=== PATIENT | male | born 1975 ===

== ENCOUNTER 2017-11-18 13:22 | Observation (INO) | payer OTHER, SELFPAY ==
[2017-11-18 13:22] VITALS: BMI 25.1
[2017-11-18] MEDS ORDERED: Sodium Chloride 0.9% 1,000 ML IV STA (14:07)
--- NOTE | 2017-11-18 14:11 | ED PDOC ---
Arrival/HPI - General Chief Complaint: ENT Problem Time Seen by Provider: 11/18/17 14:05 Historian: Patient - History of Present Illness Narrative History of Present Illness (Text): 11/18/17 14:08 42 y/o male, pmh including peritonsillar abscess, nkda, c/o throat pain x 2 days. Aching pain, aggravated by swallowing, associated with fever started today, no antipyretic taking at home, no night sweat, no chest pain or shortness of breath, no palpitation, no night sweat, no other medical or psychological complaints. Past Medical History - Provider Review Nursing Documentation Reviewed: Yes - Infectious Disease Hx of Infectious Diseases: None - Tetanus Immunization Tetanus Immunization: Unknown - Past Medical History Past Medical History: No Previous - Psychiatric Hx Depression: No Hx Emotional Abuse: No Hx Physical Abuse: No Hx Substance Use: No - Past Surgical History Past Surgical History: No Previous - Anesthesia Hx Anesthesia: No - Suicidal Assessment Feels Threatened In Home Enviroment: No Family/Social History - Physician Review Nursing Documentation Reviewed: Yes Family/Social History: Unknown Family HX Smoking Status: Unknown If Ever Smoked Hx Alcohol Use: No Hx Substance Use: No Hx Substance Use Treatment: No Allergies/Home Meds Allergies/Adverse Reactions: Allergies seafood Allergy (Uncoded 11/18/17 13:50) RASH Review of Systems - Review of Systems Constitutional: Fevers. absent: Fatigue Eyes: absent: Vision Changes ENT: Sore Throat. absent: Hearing Changes Respiratory: absent: SOB, Cough Gastrointestinal: absent: Abdominal Pain, Nausea, Vomiting Musculoskeletal: absent: Arthralgias, Back Pain Skin: absent: Rash, Pruritis Psychiatric: absent: Anxiety, Depression Physical Exam Vital Signs Reviewed: Yes Vital Signs Temp Pulse Resp BP Pulse Ox 11/18/17 21:03 66 16 126/49 L 98 11/18/17 19:34 97.9 F 64 18 110/62 97 11/18/17 13:46 100.3 F H 90 20 121/80 98 Temperature: Febrile Blood Pressure: Normal Pulse: Regular Respiratory Rate: Normal Appearance: Positive for: Well-Appearing, Non-Toxic Pain Distress: Severe Mental Status: Positive for: Alert and Oriented X 3 - Systems Exam Head: Present: Atraumatic, Normocephalic Pupils: Present: PERRL Extroacular Muscles: Present: EOMI Conjunctiva: Present: Normal Ears: Present: NORMAL TM, Normal Canal. No: Erythema Mouth: Present: Moist Mucous Membranes Pharnyx: Present: ERYTHEMA, EXUDATE, TONSILS ENLARGED, Peritonsilar Swelling, Muffled/Hoarse Voice. No: Uvular Deviation, Strider, Soft Palate/Uvular Edema Nose (External): Present: Atraumatic. No: Abrasion, Contusion, Laceration Nose (Internal): Present: Normal Inspection, No Active Bleeding. No: Rhinorrhea , Septal Hematoma, Epistaxis Neck: Present: Normal Range of Motion, Lymphadenopathy (+rt. anterior cervical) , Trachea Midline. No: Meningeal Signs, MIDLINE TENDERNESS, Paraspinal Tenderness Respiratory/Chest: Present: Clear to Auscultation, Good Air Exchange. No: Respiratory Distress, Accessory Muscle Use Cardiovascular: Present: Regular Rate and Rhythm, Normal S1, S2. No: Murmurs Abdomen: Present: Normal Bowel Sounds. No: Tenderness, Distention, Peritoneal Signs, Rebound, Guarding Back: Present: Normal Inspection Upper Extremity: Present: Normal Inspection. No: Cyanosis, Edema Lower Extremity: Present: Normal Inspection. No: Edema Neurological: Present: GCS=15, CN II-XII Intact, Speech Normal, Motor Func Grossly Intact, Gait Normal, Memory Normal Skin: Present: Warm, Dry, Normal Color. No: Rashes Psychiatric: Present: Alert, Oriented x 3, Normal Insight, Normal Concentration Medical Decision Making ED Course and Treatment: 11/18/17 14:11 -labs -CT soft tissue neck to r/o peritonsillar abscess -IVF/toradol/decadron/tylenol -observe and reassess 11/18/17 19:15 -Labs are non-significant except wbc 19.7 -CT show Evidence of probable mild tonsillitis superimposed over enlarged tonsils in general slightly, slightly greater than previously shown on prior CT 03/22/2014. A microabscess is questioned at the inferior margins of the right tonsillar pillar, approaching the hypopharynx. No airway compromise is seen body enlarged tonsils and mild suprahyoid lymphadenopathy is appreciated, minimal at the infrahyoid neck. -Pt. stated that the pain has decreased, still muffling voice. -I spoke to the ENT oncall DR. Verdugo, discussed the case in detail/labs/ radiology result, stated that he will consult on this case and will be admitted to the hospitalist service, no emergent surgical/procedure intervention indicated at this time. -I discussed the case in detail with dr. Sauceda and he agreed that this patient will need admission. -I discussed with the patient about this labs/findings and my concern, agreed he wants to be admitted. -I spoke to the medical records administrator and Dr. Shaw (house doctor), discussed about the case/labs/radiology study, agreed on this admission under the hospitalist. 11/18/17 19:45 -Chest xray show no active disease - Lab Interpretations Microbiology Results: Microbiology Results 11/18/17 19:15 Blood-Venous Blood Culture - Preliminary NO GROWTH AFTER 24 HOURS 11/18/17 19:00 Blood-Venous Blood Culture - Preliminary NO GROWTH AFTER 24 HOURS Lab Results: 11/18/17 15:30 11/18/17 15:30 Lab Results 11/18/17 15:30: WBC 19.7 H D, RBC 4.26, Hgb 13.4 L, Hct 39.4 L, MCV 92.5, MCH 31.5, MCHC 34.0, RDW 13.7, Plt Count 170, MPV 11.1 H, Gran % 81.9 H, Lymph % ( Auto) 9.3 L, Osborne % (Auto) 8.4 H, Eos % (Auto) 0.2 L, Baso % (Auto) 0.2, Gran # 16.12 H, Lymph # (Auto) 1.8, Osborne # (Auto) 1.7 H, Eos # (Auto) 0.0, Baso # (Auto ) 0.03 11/18/17 15:30: Sodium 142, Potassium 4.3, Chloride 102, Carbon Dioxide 27, Anion Gap 18, BUN 13, Creatinine 1.2, Est GFR ( Amer) > 60, Est GFR (Non- Af Amer) > 60, Random Glucose 113 H, Calcium 10.4, Total Bilirubin 0.8, AST 34, ALT 36, Alkaline Phosphatase 66, Total Protein 8.4 H, Albumin 4.4, Globulin 4.0 , Albumin/Globulin Ratio 1.1 - RAD Interpretation Radiology Orders: 11/18/17 14:09 NECK SOFT TISSUE W/CONTRAST [CT] Stat Chest xray: CT soft tissue: HISTORY: r/o peritonsillar abscess COMPARISON: Neck CT with contrast 03/22/2014 TECHNIQUE: CT of the neck with intravenous contrast. Coronal and sagittal reformats generated. Intravenous contrast dose: Omnipaque 350, 96 cc Radiation dose: DLP 403.62 mGy-cm This CT exam was performed using one or more of the following dose reduction techniques: Automated exposure control, adjustment of the mA and/or kV according to patient size, and/or use of iterative reconstruction technique. FINDINGS: NASOPHARYNX: Unremarkable. SUPRAHYOID NECK: The tonsillar pillars are prominent appearing once again on a either recurrent or chronic basis with mild increase in size suggested bilaterally at this time. There is a small lucency 4 mm greatest dimension at the right inferiorly, suggesting potential microabscess. No airway compromise is appreciated at this time. Remainder the suprahyoid neck is only 4 mild lymphadenopathy including a jugulodigastric lymph node at the right measuring 1.9 x 1.5 cm and an 1.8 x 1.4 cm left jugulodigastric lymph node. INFRAHYOID NECK: Unremarkable larynx, hypopharynx, and supraglottic space. Vocal cords intact. Limited left inferior jugular digastric lymphadenopathy. MASS: None. GLANDS: Parotid and submandibular glands unremarkable. Normal size thyroid gland, without nodule. LYMPH NODES: As above. CERVICAL SPINE: No fracture or focal lesion. VASCULAR STRUCTURES: Unremarkable. OTHER FINDINGS: None. IMPRESSION: Evidence of probable mild tonsillitis superimposed over enlarged tonsils in general slightly, slightly greater than previously shown on prior CT 2013. A microabscess is questioned at the inferior margins of the right tonsillar pillar, approaching the hypopharynx. No airway compromise is seen body enlarged tonsils and mild suprahyoid lymphadenopathy is appreciated, minimal at the infrahyoid neck. Survey Questionnaire Designer: Radiologist - Medication Orders Current Medication Orders: Discontinued Medications Acetaminophen (Tylenol 325mg Tab) 650 mg PO STAT STA Stop: 11/18/17 14:08 Last Admin: 11/18/17 15:38 Dose: Dexamethasone (Decadron Inj) 10 mg IVP STAT STA Stop: 11/18/17 14:07 Last Admin: 11/18/17 15:36 Dose: 10 mg IVP Administration Document 11/18/17 15:36 HI (Rec: 11/18/17 15:37 HI [id number]) Charges for Administration # of IVP Administrations 1 Clindamycin Phosphate 900 mg/ (Sodium Chloride) 106 mls @ 106 mls/hr IVPB STAT STA PRN Reason: Protocol Stop: 11/18/17 15:05 Last Admin: 11/18/17 15:38 Dose: 106 mls/hr eMAR Start Stop Document 11/18/17 15:38 HI (Rec: 11/18/17 15:38 HI [id number]) Intravenous Solution Start Date 11/18/17 Start Time 15:38 Sodium Chloride (Sodium Chloride 0.9%) 1,000 mls @ 999 mls/hr IV .Q1H1M STA Stop: 11/18/17 15:07 Last Admin: 11/18/17 15:35 Dose: 999 mls/hr eMAR Start Stop Document 11/18/17 15:35 HI (Rec: 11/18/17 15:36 HI [id number]) Intravenous Solution Start Date 11/18/17 Start Time 15:36 Sodium Chloride (Sodium Chloride 0.9%) 1,000 mls @ 100 mls/hr IV .Q10H YA Last Admin: 11/18/17 20:54 Dose: 100 mls/hr eMAR Start Stop Document 11/18/17 20:54 HI (Rec: 11/18/17 20:54 HI [id number]) Intravenous Solution Start Date 11/18/17 Start Time 20:54 Clindamycin Phosphate 600 mg/ (Sodium Chloride) 104 mls @ 102 mls/hr IVPB Q6 YA PRN Reason: Protocol Last Admin: 11/19/17 11:54 Dose: Ketorolac Tromethamine (Toradol) 30 mg IVP STAT STA Stop: 11/18/17 14:07 Last Admin: 11/18/17 15:37 Dose: 30 mg MAR Pain Assessment Document 11/18/17 15:37 HI (Rec: 11/18/17 15:37 HI [id number]) Pain Reassessment Is this a pain reassessment? Yes Presence of Pain Presence of Pain Yes Location Pain Location Body Press Operator Automatic Description Description Constant IVP Administration Document 11/18/17 15:37 HI (Rec: 11/18/17 15:37 HI [id number]) Charges for Administration # of IVP Administrations 1 Re-Assess: MAR Pain Assessment Document 11/18/17 16:37 HI (Rec: 11/18/17 17:19 HI [id number]) Pain Reassessment Is this a pain reassessment? Yes Sleep Is patient sleeping during reassessment? No Presence of Pain Presence of Pain No Methylprednisolone (Solu-Medrol) 60 mg IV Q6 YA Last Admin: 11/19/17 11:55 Dose: - PA / OCCUPATIONAL HEALTH PROFESSIONAL / Resident Statement /DO has reviewed & agrees with the documentation as recorded. Disposition/Present on Arrival - Present on Arrival Any Indicators Present on Arrival: No History of DVT/PE: No History of Uncontrolled Diabetes: No Urinary Catheter: No History of Decub. Ulcer: No History Surgical Site Infection Following: None - Disposition Have Diagnosis and Disposition been Completed?: Yes Diagnosis: Peritonsillar abscess, Leukocytosis (leucocytosis), Tonsillitis with exudate Disposition: HOSPITALIZED Disposition Time: 14:12 Patient Plan: Admission, Observation Condition: STABLE
[2017-11-18 16:00] LABS: BASO # 0.03 K/mm3 (0.0-2.0); BASO % 0.2 % (0.0-3.0); EOS % 0.2 % (1.5-5.0); GRAN # 16.12 (1.4-6.5); GRAN % 81.9 % (50.0-68.0); HEMOGLOBIN 13.4 g/dL (14.0-18.0); LYMPH # 1.8 (1.2-3.4); LYMPH % 9.3 % (22.0-35.0); MEAN CELL VOLUME 92.5 fl (80.0-105.0); MEAN CORPUSCULAR HEMOGLOBIN 31.5 pg (25.0-35.0); MEAN PLATELET VOLUME 11.1 fl (7.0-11.0); MONO # 1.7 (0.1-0.6); MONO % 8.4 % (1.0-6.0); RBC 4.26 10^6/uL (3.5-6.1); RED CELL DISTRIBUTION WIDTH 13.7 % (11.5-14.5); WHITE BLOOD COUNT 19.7 10^3/ul (4.5-11.0)
[2017-11-18 16:09] LABS: BLOOD UREA NITROGEN 13 mg/dL (7-21); GFR AFRICAN-AMERICAN > 60; GFR NON-AFRICAN AMERICAN > 60
[2017-11-18 16:10] LABS: ALB/GLOB RATIO 1.1 (1.1-1.8); ALBUMIN 4.4 g/dL (3.0-4.8); ALT/SGPT 36 U/L (7-56); AST/SGOT 34 U/L (17-59); CALCIUM 10.4 mg/dL (8.4-10.5)
[2017-11-18] MEDS ORDERED: Iohexol 350 MG/100 ML VIAL ONE (16:22)
--- NOTE | 2017-11-18 18:07 | CT ---
PROCEDURE: CT NECK WITH CONTRAST HISTORY: r/o peritonsillar abscess COMPARISON: Neck CT with contrast 03/22/2014 TECHNIQUE: CT of the neck with intravenous contrast. Coronal and sagittal reformats generated. Intravenous contrast dose: Omnipaque 350, 96 cc Radiation dose: DLP 403.62 mGy-cm This CT exam was performed using one or more of the following dose reduction techniques: Automated exposure control, adjustment of the mA and/or kV according to patient size, and/or use of iterative reconstruction technique. FINDINGS: NASOPHARYNX: Unremarkable. SUPRAHYOID NECK: The tonsillar pillars are prominent appearing once again on a either recurrent or chronic basis with mild increase in size suggested bilaterally at this time. There is a small lucency 4 mm greatest dimension at the right inferiorly, suggesting potential microabscess. No airway compromise is appreciated at this time. Remainder the suprahyoid neck is only 4 mild lymphadenopathy including a jugulodigastric lymph node at the right measuring 1.9 x 1.5 cm and an 1.8 x 1.4 cm left jugulodigastric lymph node. INFRAHYOID NECK: Unremarkable larynx, hypopharynx, and supraglottic space. Vocal cords intact. Limited left inferior jugular digastric lymphadenopathy. MASS: None. GLANDS: Parotid and submandibular glands unremarkable. Normal size thyroid gland, without nodule. LYMPH NODES: As above. CERVICAL SPINE: No fracture or focal lesion. VASCULAR STRUCTURES: Unremarkable. OTHER FINDINGS: None. IMPRESSION: Evidence of probable mild tonsillitis superimposed over enlarged tonsils in general slightly, slightly greater than previously shown on prior CT 03/22/2014. A microabscess is questioned at the inferior margins of the right tonsillar pillar, approaching the hypopharynx. No airway compromise is seen body enlarged tonsils and mild suprahyoid lymphadenopathy is appreciated, minimal at the infrahyoid neck.
[2017-11-18] MEDS ORDERED: Sodium Chloride 0.9% 1,000 ML IV SCH (19:30)
--- NOTE | 2017-11-18 20:10 | CP.PCM.CON ---
History of Present Illness - History of Present Illness History of Present Illness: Recent onset of throat swelling and pain with dysphagia. Pt has had peritonsil abscess drained in past. Pt denies other ENT issues. Review of Systems - Constitutional Constitutional: As Per HPI - EENT Eyes: As Per HPI Ears: As Per HPI Nose/Mouth/Throat: As Per HPI - Cardiovascular Cardiovascular: As Per HPI - Respiratory Respiratory: As Per HPI - Gastrointestinal Gastrointestinal: As Per HPI - Genitourinary Genitourinary: As Per HPI - Reproductive: Male Reproductive:Male: As Per HPI - Musculoskeletal Musculoskeletal: As Per HPI - Integumentary Integumentary: As Per HPI - Neurological Neurological: As Per HPI - Psychiatric Psychiatric: As Per HPI - Endocrine Endocrine: As Per HPI - Hematologic/Lymphatic Hematologic: As Per HPI Past Patient History - Infectious Disease Hx of Infectious Diseases: None - Tetanus Immunizations Tetanus Immunization: Unknown - Past Social History Smoking Status: Never Smoked Alcohol: Occasional Drugs: Denies - PSYCHIATRIC Hx Depression: No Hx Emotional Abuse: No Hx Physical Abuse: No Hx Substance Use: No - SURGICAL HISTORY Hx Surgeries: No - ANESTHESIA Hx Anesthesia: No Meds Allergies/Adverse Reactions: Allergies Allergy/AdvReac Type Severity Reaction Status Date / Time seafood Allergy RASH Uncoded 11/18/17 13:50 - Medications Medications: Current Medications Sodium Chloride (Sodium Chloride 0.9%) 1,000 mls @ 100 mls/hr IV .Q10H YA Physical Exam - Constitutional Appears: Well, Non-toxic, No Acute Distress - Head Exam Head Exam: ATRAUMATIC, NORMAL INSPECTION, NORMOCEPHALIC - Eye Exam Eye Exam: EOMI, Normal appearance, PERRL - ENT Exam ENT Exam: Mucous Membranes Moist - Expanded ENT Exam Expanded Ear exam: absent: Auricular Hematoma, Auricular Trauma, External Canal Tenderness Teeth exam: dental caries, fractured tooth # Throat exam: Post Pharyngeal Edema, Post Pharyngeal Erythema, Tonsillar Erythema , Tonsillar Exudate - Neck Exam Neck exam: Negative for: Full Rom, Lymphadenopathy, Meningismus, Normal Inspection, Tenderness, Thyromegaly - Respiratory Exam Respiratory Exam: Decreased Breath Sounds, NORMAL BREATHING PATTERN - Psychiatric Exam Psychiatric exam: Normal Affect, Normal Mood Results - Vital Signs Recent Vital Signs: Last Vital Signs Temp 97.9 F 11/18/17 19:34 Pulse 64 11/18/17 19:34 Resp 18 11/18/17 19:34 BP 110/62 11/18/17 19:34 Pulse Ox 97 11/18/17 19:34 - Labs Result Diagrams: 11/18/17 15:30 11/18/17 15:30 Assessment & Plan (1) Peritonsillar abscess Status: Acute (2) Tonsillitis with exudate Status: Acute (3) Pharyngitis Status: Acute (4) Leukocytosis (leucocytosis) Status: Acute - Assessment and Plan (Free Text) Plan: IV antibiotic treatment, steroid treatment, pt should be able to be discharged after lunch tomorrow on 11/19/17 if symptoms are improved. He shoudl be discharged home on out patient abx and steroids. [facility] to schedule tonsillectomy as out patient. - Date & Time Date: 11/18/17 Time: 20:09
[2017-11-19] MEDS: Clindamycin 600 MG in Sodium Chloride 0.9% 100 ML IVPB SCH ×3 (00:18→11:54)
[2017-11-19 02:09] VITALS: BP 120/74; RESP 20; TEMP 97.5
--- NOTE | 2017-11-19 02:12 | CP.PCM.HP ---
History of Present Illness - History of Present Illness History of Present Illness: 42 year old male complains of throat pain, fever, sweating, difficulty in swallowing, chills, bodyaches, swelling in throat for two days.States that he woke up with congestion this morning.Had similar symptoms in the past when he was found to have peritonsillar abscess which was drained 3 years ago.Denies sob, chest pain, abdominal pain, nausea, vomiting,diarrhoea. ALLERGIES: Seafood. PMH: Drainage of peritonsillar abscess. Overweight. PAST SURGICAL HISTORY: Drainage of tonsillar abscess. FH: Denies. SOCIAL HISTORY:Denies drug use or smoking. Has used alcohol in the past. HOME MEDICATIONS: None. PMD: None. ROS:13 point review of systems is positive for sweating, chills, fever, bodyaches, congestion, cough , dysphagia. Present on Admission - Present on Admission Any Indicators Present on Admission: No History of DVT/PE: No History of Uncontrolled Diabetes: No Urinary Catheter: No Decubitus Ulcer Present: No History Surgical Site Infection Following: None Review of Systems - Review of Systems All systems: reviewed and no additional remarkable complaints except (as mentioned in HPI.) Past Patient History - Infectious Disease Hx of Infectious Diseases: None - Tetanus Immunizations Tetanus Immunization: Unknown - Past Medical History & Family History Past Medical History?: No Pertinent Family History: None. - Past Social History Smoking Status: Never Smoked Chewing Tobacco Use: No Cigar Use: No Alcohol: Occasional Drugs: Denies Home Situation {Lives}: With Family Domestic Violence: Negative - CARDIAC Hx Cardiac Disorders: No - PULMONARY Hx Respiratory Disorders: No - NEUROLOGICAL Hx Neurological Disorder: No - HEENT Hx HEENT Problems: No - RENAL Hx Chronic Kidney Disease: No - ENDOCRINE/METABOLIC Hx Endocrine Disorders: No - HEMATOLOGICAL/ONCOLOGICAL Hx Blood Disorders: No - INTEGUMENTARY Hx Dermatological Problems: No - MUSCULOSKELETAL/RHEUMATOLOGICAL Hx Musculoskeletal Disorders: No Hx Falls: No - GASTROINTESTINAL Hx Gastrointestinal Disorders: No - GENITOURINARY/GYNECOLOGICAL Hx Genitourinary Disorders: No - PSYCHIATRIC Hx Depression: No Hx Emotional Abuse: No Hx Physical Abuse: No Hx Substance Use: No - SURGICAL HISTORY Hx Surgeries: Yes Other/Comment: peritoneal abscess drainage - ANESTHESIA Hx Anesthesia: No Meds Allergies/Adverse Reactions: Allergies Allergy/AdvReac Type Severity Reaction Status Date / Time seafood Allergy RASH Uncoded 11/18/17 13:50 Physical Exam - Constitutional Appears: Well, No Acute Distress - Head Exam Head Exam: ATRAUMATIC, NORMAL INSPECTION, NORMOCEPHALIC - Eye Exam Eye Exam: Normal appearance - ENT Exam ENT Exam: Mucous Membranes Moist, Normal External Ear Exam Additional comments: both tonsils hypertrophic , erythemic. meryl phyarynx erythema present. Exudate +. No purulent exudate seen. - Neck Exam Neck exam: Positive for: Normal Inspection. Negative for: Tenderness Additional comments: No lymphadenopathy. - Respiratory Exam Respiratory Exam: Clear to Auscultation Bilateral, NORMAL BREATHING PATTERN - Cardiovascular Exam Cardiovascular Exam: REGULAR RHYTHM. absent: JVD - GI/Abdominal Exam GI & Abdominal Exam: Normal Bowel Sounds - Rectal Exam Rectal Exam: Deferred - Exam Additional comments: Deferred. - Extremities Exam Extremities exam: Positive for: normal inspection - Back Exam Back exam: NORMAL INSPECTION - Neurological Exam Neurological exam: Alert, Oriented x3 - Psychiatric Exam Psychiatric exam: Normal Affect, Normal Mood - Skin Skin Exam: Normal Color Results - Vital Signs Recent Vital Signs: Last Vital Signs Temp 98.4 F 11/18/17 21:29 Pulse 67 11/18/17 21:29 Resp 18 11/18/17 21:29 BP 100/62 11/18/17 21:29 Pulse Ox 98 11/18/17 21:03 - Labs Result Diagrams: 11/18/17 15:30 11/18/17 15:30 - Imaging and Cardiology Chest x-ray Status: Image reviewed by me (NAD) CT NECK Soft tissue Status: Report reviewed by me (Mild tonsillitis,mild suprahyoid lymphadenopathy. ) Assessment & Plan - Assessment and Plan (Free Text) Assessment: Dysphagia.-Liauid diet. -Advance as tolerated. Throat pain.-Analgesics prn. Fever. Peritonsillar abscess.-ENT consultation. -IV Clindamycin. -IV steroids. -IV fluids. -CBC in AM. Tonsillitis with exudate. Pharyngitis.IV antibiotic. Overweight.-Counselling. Leukocytosis.-Repeat CBC. Allergy to sea food.-Avoid. Borderline anemia.- Repeat. -If persists, out patient work up. - Date & Time Date: 11/19/17 Time: 06:55
[2017-11-19 08:00] LABS: HEMOGLOBIN 12.2 g/dL (14.0-18.0); MEAN CELL VOLUME 92.3 fl (80.0-105.0); MEAN CORPUSCULAR HEMOGLOBIN 30.5 pg (25.0-35.0); MEAN CORPUSCULAR HGB CONC 33.1 g/dl (31.0-37.0); MEAN PLATELET VOLUME 11.3 fl (7.0-11.0); RED CELL DISTRIBUTION WIDTH 13.4 % (11.5-14.5); WHITE BLOOD COUNT 16.3 10^3/ul (4.5-11.0)
--- NOTE | 2017-11-19 08:10 | RAD ---
HISTORY: medical clearance COMPARISON: No prior. FINDINGS: LUNGS: No active pulmonary disease. PLEURA: No significant pleural effusion identified, no pneumothorax apparent. CARDIOVASCULAR: Normal. OSSEOUS STRUCTURES: No significant abnormalities. VISUALIZED UPPER ABDOMEN: Normal. OTHER FINDINGS: None. IMPRESSION: No active disease.
[2017-11-19 08:12] LABS: ALB/GLOB RATIO 1.1 (1.1-1.8); ALBUMIN 4.1 g/dL (3.0-4.8); ALT/SGPT 46 U/L (7-56); AST/SGOT 43 U/L (17-59); BLOOD UREA NITROGEN 17 mg/dL (7-21); CALCIUM 9.7 mg/dL (8.4-10.5); GFR AFRICAN-AMERICAN > 60; GFR NON-AFRICAN AMERICAN > 60
[2017-11-19 08:57] VITALS: PULSE 70; O2SAT 94
--- NOTE | 2017-11-19 09:13 | CP.PCM.DIS ---
<Nik Palenciaystal - Last Filed: 11/19/17 09:06> Provider - Provider Date of Admission: 11/18/17 19:16 Attending physician: Ric Randle MD Primary care physician: Azam Profile Required Consults: ENT: Dr. Verdugo Time Spent in preparation of Discharge (in minutes): 35 Hospital Course - Lab Results Lab Results: Most Recent Lab Values WBC 16.3 10^3/ul (4.5-11.0) H 11/19/17 07:30 RBC 4.00 10^6/uL (3.5-6.1) 11/19/17 07:30 Hgb 12.2 g/dL (14.0-18.0) L 11/19/17 07:30 Hct 36.9 % (42.0-52.0) L 11/19/17 07:30 MCV 92.3 fl (80.0-105.0) 11/19/17 07:30 MCH 30.5 pg (25.0-35.0) 11/19/17 07:30 MCHC 33.1 g/dl (31.0-37.0) 11/19/17 07:30 RDW 13.4 % (11.5-14.5) 11/19/17 07:30 Plt Count 182 10^3/uL (120.0-450.0) 11/19/17 07:30 MPV 11.3 fl (7.0-11.0) H 11/19/17 07:30 Gran % 81.9 % (50.0-68.0) H 11/18/17 15:30 Lymph % (Auto) 9.3 % (22.0-35.0) L 11/18/17 15:30 [place] % (Auto) 8.4 % (1.0-6.0) H 11/18/17 15:30 Eos % (Auto) 0.2 % (1.5-5.0) L 11/18/17 15:30 Baso % (Auto) 0.2 % (0.0-3.0) 11/18/17 15:30 Gran # 16.12 (1.4-6.5) H 11/18/17 15:30 Lymph # (Auto) 1.8 (1.2-3.4) 11/18/17 15:30 [place] # (Auto) 1.7 (0.1-0.6) H 11/18/17 15:30 Eos # (Auto) 0.0 (0.0-0.7) 11/18/17 15:30 Baso # (Auto) 0.03 K/mm3 (0.0-2.0) 11/18/17 15:30 Sodium 142 mmol/L (132-148) 11/19/17 07:30 Potassium 4.4 mmol/L (3.6-5.0) 11/19/17 07:30 Chloride 107 mmol/L (98-107) 11/19/17 07:30 Carbon Dioxide 25 mmol/L (21-33) 11/19/17 07:30 Anion Gap 14 (10-20) 11/19/17 07:30 BUN 17 mg/dL (7-21) 11/19/17 07:30 Creatinine 1.0 mg/dl (0.8-1.5) 11/19/17 07:30 Est GFR ( Amer) > 60 11/19/17 07:30 Est GFR (Non-Af Amer) > 60 11/19/17 07:30 Random Glucose 155 mg/dL (70-110) H 11/19/17 07:30 Calcium 9.7 mg/dL (8.4-10.5) 11/19/17 07:30 Total Bilirubin 0.5 mg/dL (0.2-1.3) 11/19/17 07:30 AST 43 U/L (17-59) 11/19/17 07:30 ALT 46 U/L (7-56) 11/19/17 07:30 Alkaline Phosphatase 59 U/L (38-126) 11/19/17 07:30 Total Protein 7.6 g/dL (5.8-8.3) 11/19/17 07:30 Albumin 4.1 g/dL (3.0-4.8) 11/19/17 07:30 Globulin 3.6 gm/dL 11/19/17 07:30 Albumin/Globulin Ratio 1.1 (1.1-1.8) 11/19/17 07:30 - Hospital Course Hospital Course: This is a 42yo male with past medical history of tonsillar abscess s/p drainage here for pharyngitis and tonsillitis. Patient was seen and examined at bedside. He reports feeling much better today. He denies having any fevers/chills, dysphagia, shortness of breath, nausea/vomiting/diarrhea, chest pain, numbness or tingling. Patient had a soft tissue neck CT which showed mild tonsillitis superimposed over slightly enlarged tonsils with possible microabscess at the R inferior tonsillar pillar. No airway compromise was noted and mild subprahyoid lymphadenopathy was seen. Patient was evaluated by ENT who recommended Antibiotics and steroids. They report patient should be clear for discharge. Dr. Verdugo recommended the patient to follow up with outpatient [facility] or [facility] for elective tonsillectomy in the future. Patient will be d/c home with PO Prednisone for 8 days with taper and Clindamycin q8h for 10 days. It is recommended that patient establish care with a PMD and was referred to [facility] [place] outpatient clinic. - Date & Time of H&P Date of H&P: 11/19/17 Time of H&P: 02:06 Discharge Exam - Head Exam Head Exam: ATRAUMATIC, NORMAL INSPECTION, NORMOCEPHALIC - Eye Exam Eye Exam: Normal appearance, PERRL Pupil Exam: NORMAL ACCOMODATION - ENT Exam ENT Exam: Mucous Membranes Moist Additional comments: Bilateral tonsilar erythema and R tonsillar exudate Pharyngeal erythema - Neck Exam Neck exam: Full Rom - Respiratory Exam Respiratory Exam: Clear to PA & Lateral, NORMAL BREATHING PATTERN, UNREMARKABLE. absent: Rales, Rhonchi - Cardiovascular Exam Cardiovascular Exam: REGULAR RHYTHM, +S1, +S2. absent: Gallop, Rubs, Systolic Murmur - GI/Abdominal Exam GI & Abdominal Exam: Normal Bowel Sounds, Soft, Unremarkable. absent: Mass, Rebound, Rigid - Extremities Exam Extremities exam: normal inspection - Neurological Exam Neurological exam: Alert, CN II-XII Intact, Oriented x3 - Psychiatric Exam Psychiatric exam: Normal Affect, Normal Mood - Skin Skin Exam: Dry, Intact, Normal Color, Warm Discharge Plan - Discharge Medications Prescriptions: Clindamycin [Cleocin] 300 mg PO Q8H #30 cap predniSONE [predniSONE Tab] See Taper PO DAILY #20 tab - Follow Up Plan Condition: STABLE Disposition: HOME/ ROUTINE Instructions: Pneumococcal Polysaccharide Vaccine (23-Valent), Flu Vaccine, Abscess (GEN) Additional Instructions: 1. Take Antibiotics and Prednisone as directed 2. As per ENT, they recommend to follow up with [facility] or [facility] for outpatient tonsillectomy 3. If symptoms worsen or feel short of breath, please go to the nearest emergency room. 4. Please go to [facility] [place] Outpatient clinic to establish care for follow up. Referrals: code-laboration Profile Req, [Non-Staff] - Viraj Sanchez MD [Medical Doctor] - [facility] at [facility] – [place] [Outside] <Ric Randle - Last Filed: 11/19/17 17:06> Provider - Provider Date of Admission: 11/18/17 19:16 Attending physician: Ric Randle MD Time Spent in preparation of Discharge (in minutes): 45 Hospital Course - Lab Results Lab Results: Most Recent Lab Values WBC 16.3 10^3/ul (4.5-11.0) H 11/19/17 07:30 RBC 4.00 10^6/uL (3.5-6.1) 11/19/17 07:30 Hgb 12.2 g/dL (14.0-18.0) L 11/19/17 07:30 Hct 36.9 % (42.0-52.0) L 11/19/17 07:30 MCV 92.3 fl (80.0-105.0) 11/19/17 07:30 MCH 30.5 pg (25.0-35.0) 11/19/17 07:30 MCHC 33.1 g/dl (31.0-37.0) 11/19/17 07:30 RDW 13.4 % (11.5-14.5) 11/19/17 07:30 Plt Count 182 10^3/uL (120.0-450.0) 11/19/17 07:30 MPV 11.3 fl (7.0-11.0) H 11/19/17 07:30 Gran % 81.9 % (50.0-68.0) H 11/18/17 15:30 Lymph % (Auto) 9.3 % (22.0-35.0) L 11/18/17 15:30 [place] % (Auto) 8.4 % (1.0-6.0) H 11/18/17 15:30 Eos % (Auto) 0.2 % (1.5-5.0) L 11/18/17 15:30 Baso % (Auto) 0.2 % (0.0-3.0) 11/18/17 15:30 Gran # 16.12 (1.4-6.5) H 11/18/17 15:30 Lymph # (Auto) 1.8 (1.2-3.4) 11/18/17 15:30 [place] # (Auto) 1.7 (0.1-0.6) H 11/18/17 15:30 Eos # (Auto) 0.0 (0.0-0.7) 11/18/17 15:30 Baso # (Auto) 0.03 K/mm3 (0.0-2.0) 11/18/17 15:30 Sodium 142 mmol/L (132-148) 11/19/17 07:30 Potassium 4.4 mmol/L (3.6-5.0) 11/19/17 07:30 Chloride 107 mmol/L (98-107) 11/19/17 07:30 Carbon Dioxide 25 mmol/L (21-33) 11/19/17 07:30 Anion Gap 14 (10-20) 11/19/17 07:30 BUN 17 mg/dL (7-21) 11/19/17 07:30 Creatinine 1.0 mg/dl (0.8-1.5) 11/19/17 07:30 Est GFR ( Amer) > 60 11/19/17 07:30 Est GFR (Non-Af Amer) > 60 11/19/17 07:30 Random Glucose 155 mg/dL (70-110) H 11/19/17 07:30 Calcium 9.7 mg/dL (8.4-10.5) 11/19/17 07:30 Total Bilirubin 0.5 mg/dL (0.2-1.3) 11/19/17 07:30 AST 43 U/L (17-59) 11/19/17 07:30 ALT 46 U/L (7-56) 11/19/17 07:30 Alkaline Phosphatase 59 U/L (38-126) 11/19/17 07:30 Total Protein 7.6 g/dL (5.8-8.3) 11/19/17 07:30 Albumin 4.1 g/dL (3.0-4.8) 11/19/17 07:30 Globulin 3.6 gm/dL 11/19/17 07:30 Albumin/Globulin Ratio 1.1 (1.1-1.8) 11/19/17 07:30 Attending/Attestation - Attestation I have personally seen and examined this patient.: Yes I have fully participated in the care of the patient.: Yes I have reviewed all pertinent clinical information, including history, physical exam and plan: Yes Notes (Text): I have seen and examined the patient at bedside. Agree with the above note with the following additions/ exceptions: Briefly this is 42 year old male with history of tonsillar abscess s/p drainage here for pharyngitis and tonsillitis. Today patient feels well and is able to eat without any problem. ENT cleared the patient. Outpatient tonsillectomy recommended. Continue clindamycin and steroid taper. Upon discharge patient will follow up with [facility] clinic. Dr Ric Randle
== END 2017-11-19 14:34 | disposition home or self-care (01) ==
LOC: ED 13:22 → ERH 19:16 → 5RNO 21:24
PROVIDERS: ADMIT Hospitalist; ATTEND Hospitalist
DX: J03.90 Acute tonsillitis, unspecified (principal); J02.9 Acute pharyngitis, unspecified; R13.10 Dysphagia, unspecified; E66.3 Overweight; D64.9 Anemia, unspecified; D72.829 Elevated white blood cell count, unspecified
CPT/HCPCS: 36415; 70491; 71045; 80053; 85025; 85027; 87040; 96374; 96375; 96376; 99284; G0378; J1100; J1885; J2930; J7040; Q9967